=== PATIENT | male | born 1970 | race Caucasian/White ===

== ENCOUNTER 2016-10-27 01:11 | Emergency (ER) | payer MEDICARE, OTHER ==
[~2016-10-27] VITALS: Ht 172.7 cm; Wt 110.0 kg
[~2016-10-27 01:11] MED LIST: ACET325 PO; ATOR10TA PO; CITA-48 PO; CLON1 PO; DIVA500 PO; DYAZ37.52 PO; FERR150C2 PO; FIBE625T3 PO; LEVO112T2 PO; LIPO150C3 PO; METO25 PO; NORV5TAB PO; OMEP40CA2 PO; PREPCRE PR; QUET200 PO; SERO300T2 PO
[2016-10-27 01:15] VITALS: BP 143/82; PULSE 94; RESP 16; TEMP 98.7; O2SAT 99
--- NOTE | 2016-10-27 01:42 | PD ---
HPI Chief Complaint: Psychiatric Symptoms Time Seen by Provider: 01:30 Travel History International Travel<30 days: No Contact w/Intl Traveler<30days: No Traveled to known affect area: No History of Present Illness HPI This is a 46-year-old male with history of developmental delay who presents voluntarily for psychiatric evaluation. According to the army officer who brought the patient here, he was being seen at [facility] in [place] for evaluation of chest pain. As he was being discharged she said that he was feeling suicidal and so they sent him here for psychiatric evaluation. The patient is a poor historian secondary to his history of developmental delay. He is a resident of a residential. He says that he has been feeling suicidal today but he doesn't know why. He denies any attempts at harming himself. He denies any drug or alcohol use. He does endorse pain in the center of his chest which she reportedly has "all the time" for years. The pain is worse with palpation. Nothing else seems to make the pain worse. He denies any associated symptoms such as shortness of breath, cough or congestion, abdominal pain, nausea or vomiting, diaphoresis, exertional chest pain. No calf or leg swelling, recent travel, recent surgery. No evidence of coronary artery disease per chart review. He has been seen here several times in the past for psychiatric evaluation as well as for evaluation of similar sounding chest pain issues. [facility] Past Medical History Neurologic: Yes (MENTAL RETARDATION) Psychiatric: Yes Social History Alcohol Use: No Tobacco Use: No Substance Use: No Allergies-Medications (Allergen,Severity, Reaction): Coded Allergies: No Known Allergies (Unverified , 10/27/16) Reported Meds & Prescriptions Reported Meds & Active Scripts Active Active Prescriptions or Reported Medications Unobtainable Review of Systems ROS Limitations: Poor Historian Except as stated in HPI: all other systems reviewed are Neg Physical Exam Exam Limitations: Poor Historian Narrative GENERAL: Well-developed well-nourished male in no acute distress SKIN: Warm and dry. Scar noted to the forehead. HEAD: Atraumatic. Normocephalic. EYES: Pupils equal and round. No scleral icterus. No injection or drainage. ENT: No nasal bleeding or discharge. Mucous membranes pink and moist. NECK: Trachea midline. No JVD. CARDIOVASCULAR: Regular rate and rhythm. No murmur appreciated. RESPIRATORY: No accessory muscle use. Clear to auscultation. Breath sounds equal bilaterally. GASTROINTESTINAL: Abdomen soft, non-tender, nondistended. Hepatic and splenic margins not palpable. MUSCULOSKELETAL: No obvious deformities. Some tenderness to palpation to lower chest wall. No lower extremity edema, negative Homans. NEUROLOGICAL: Awake and alert. No obvious cranial nerve deficits. Motor grossly within normal limits. Normal speech. Data Data Last Documented VS Vital Signs Date Time Temp Pulse Resp B/P Pulse Ox O2 Delivery O2 Flow Rate FiO2 10/27/16 01:15 94 16 10/27/16 01:15 98.7 143/82 99 Orders Complete Blood Count With Diff (10/27/16 01:23) Drug Screen, Random Urine (10/27/16 01:23) Salicylates (Aspirin) (10/27/16 01:23) Psych Screen (10/27/16 01:23) Electrocardiogram (10/27/16 01:35) Ckmb (Isoenzyme) Profile (10/27/16 01:35) Magnesium (Mg) (10/27/16 01:35) Troponin I (10/27/16 01:35) Lipase (10/27/16 01:35) Chest, Single Ap (10/27/16 ) Tylenol (Acetaminophen) (10/27/16 01:40) Alcohol (Ethanol) (10/27/16 01:40) Comprehensive Metabolic Panel (10/27/16 01:40) Labs Laboratory Tests Test 10/27/16 01:40 White Blood Count 7.7 TH/MM3 Red Blood Count 4.66 MIL/MM3 Hemoglobin 13.5 GM/DL Hematocrit 39.0 % Mean Corpuscular Volume 83.8 FL Mean Corpuscular Hemoglobin 28.9 PG Mean Corpuscular Hemoglobin 34.5 % Concent Red Cell Distribution Width 15.5 % Platelet Count 222 TH/MM3 Mean Platelet Volume 8.9 FL Neutrophils (%) (Auto) 66.5 % Lymphocytes (%) (Auto) 23.9 % Monocytes (%) (Auto) 8.6 % Eosinophils (%) (Auto) 0.5 % Basophils (%) (Auto) 0.5 % Neutrophils # (Auto) 5.2 TH/MM3 Lymphocytes # (Auto) 1.9 TH/MM3 Monocytes # (Auto) 0.7 TH/MM3 Eosinophils # (Auto) 0.0 TH/MM3 Basophils # (Auto) 0.0 TH/MM3 CBC Comment DIFF FINAL Differential Comment Sodium Level 142 MEQ/L Potassium Level 3.8 MEQ/L Chloride Level 107 MEQ/L Carbon Dioxide Level 27.5 MEQ/L Anion Gap 8 MEQ/L Blood Urea Nitrogen 11 MG/DL Creatinine 0.81 MG/DL Estimat Glomerular Filtration 104 ML/MIN Rate Random Glucose 108 MG/DL Calcium Level 8.9 MG/DL Magnesium Level 1.9 MG/DL Total Bilirubin 0.4 MG/DL Aspartate Amino Transf 15 U/L (AST/SGOT) Alanine Aminotransferase 18 U/L (ALT/SGPT) Alkaline Phosphatase 63 U/L Total Creatine Kinase 87 U/L Troponin I LESS THAN 0.02 NG/ML Total Protein 7.4 GM/DL Albumin 3.9 GM/DL Lipase 184 U/L Salicylates Level LESS THAN 1.7 MG/DL Acetaminophen Level LESS THAN 2.0 MCG/ML Ethyl Alcohol Level LESS THAN 3 MG/DL MDM Medical Decision Making Medical Screen Exam Complete: Yes Emergency Medical Condition: Yes Medical Record Reviewed: Yes Interpretation(s) EKG normal sinus rhythm Chest x-ray normal CBC unremarkable CMP unremarkable Troponin/CK negative Tylenol/salicylate level negative Differential Diagnosis Developmental delay, depression, suicidal ideation, acute psychosis, major depressive disorder Narrative Course This is a 46-year-old male who was sent here from an outside emergency room after evaluation for chest pain. He was sent here voluntarily for evaluation of suicidal ideation which he reports started today. His chest pain is very atypical and seems to be reproducible with palpation. It appears that the patient has been evaluated for similar episodes of chest pain in the past with essentially unremarkable workups. I don't suspect pulmonary embolism or cardiac etiology of this patient's pain. Reassuringly he has normal EKG and negative cardiac enzymes as well as a normal chest x-ray. Mental health screening discussed with the patient. Psychiatric screen ordered. The patient is medically cleared for psychiatric disposition. Procedures EKG Prior to Arrival: Yes Diagnosis Primary Impression: Suicidal ideation Scripts Unable to Obtain Active Prescriptions or Reported Meds Bradford Bennett Oct 27, 2016 01:42
[2016-10-27 02:00] LABS: AUTOMATED NEUTROPHIL # 5.2 TH/MM3 (1.8-7.7); BASOPHIL % 0.5 % (0.0-2.0); EOSINOPHIL % 0.5 % (0.0-4.0); HEMO FLAGS DIFF FINAL; LYMPH % 23.9 % (9.0-44.0); LYMPHOCYTE # 1.9 TH/MM3 (1.0-4.8); MEAN CELL VOLUME 83.8 FL (80.0-100.0); MEAN CORPUSCULAR HEMOGLOBIN 28.9 PG (27.0-34.0); MEAN CORPUSCULAR HGB CONC 34.5 % (32.0-36.0); MONO % 8.6 % (0.0-8.0); NEUT % 66.5 % (16.0-70.0); PLATELET COUNT 222 TH/MM3 (150-450); RED BLOOD COUNT 4.66 MIL/MM3 (4.50-5.90); RED CELL DISTRIBUTION WIDTH 15.5 % (11.6-17.2); WHITE BLOOD COUNT 7.7 TH/MM3 (4.0-11.0)
--- NOTE | 2016-10-27 02:12 | RADRPT ---
EXAM DATE/TIME: 10/27/2016 01:56 [facility] COMPARISON: CHEST SINGLE AP, December 19, 2015, 17:52. INDICATIONS : Chest pain, shortness of breath for 1 month MEDICAL HISTORY : None. SURGICAL HISTORY : None. ENCOUNTER: Initial ACUITY: 1 month PAIN SCORE: 6/10 LOCATION: Center of chest FINDINGS: A single view of the chest demonstrates the lungs to be symmetrically aerated without evidence of mas s, infiltrate or effusion. The cardiomediastinal contours are unremarkable. Osseous structures are intact. CONCLUSION: Normal examination. Johan Harden Jr., MD on October 27, 2016 at 2:10 Board Certified Radiologist. This report was verified electronically.
[2016-10-27 02:15] LABS: ANION GAP 8 MEQ/L (5-15); BICARBONATE 27.5 MEQ/L (21.0-32.0); BLOOD UREA NITROGEN 11 MG/DL (7-18); CHLORIDE 107 MEQ/L (98-107); MAGNESIUM 1.9 MG/DL (1.5-2.5); POTASSIUM 3.8 MEQ/L (3.5-5.1); SODIUM (NA) 142 MEQ/L (136-145)
[2016-10-27 02:18] LABS: ACETAMINOPHEN LESS THAN 2.0 MCG/ML (10.0-30.0); ALKALINE PHOSPHATASE 63 U/L (45-117); ALT (GPT) 18 U/L (12-78); AST (GOT) 15 U/L (15-37); GLOMERULAR FILTRATION RATE 104 ML/MIN (>89); TOTAL BILIRUBIN ADULT 0.4 MG/DL (0.2-1.0)
[2016-10-27 02:20] LABS: CREATINE KINASE 87 U/L (39-308)
[2016-10-27 02:32] LABS: AMPHETAMINE, URINE NEG (NEG); BARBITURATES, URINE NEG (NEG); COCAINE, URINE NEG (NEG)
[2016-10-27] MEDS ORDERED: ACETAMINOPHEN 325 MG TAB PO ONE (02:45)
[2016-10-27 07:55] VITALS: BP 137/79; PULSE 75; RESP 16; TEMP 98.7; O2SAT 99
[2016-10-27 11:03] VITALS: BP 150/81; PULSE 107; RESP 18; O2SAT 97
--- NOTE | 2016-10-27 12:49 | EKG ---
Date Performed: 10/27/2016 Time Performed: 01:33:42 PTAGE: 46 years EKG: Sinus rhythm NORMAL ECG INTERPRETATION BASED ON A DEFAULT AGE OF 40 YEARS PREVIOUS TRACING : 12/19/2015 18.38 Compared to prior tracing no significant change DOCTOR: Yayo Hastings Interpretating Date/Time 10/27/2016 12:48:31
[2016-10-27] MEDS ORDERED: LURA20TA PO (13:12)
[2016-10-27] MEDS ORDERED: TRIA37.5 PO (13:12)
[2016-10-27] MEDS ORDERED: LURA40 PO (13:12)
[2016-10-27] MEDS ORDERED: OMEP40CA2 PO (13:12)
[2016-10-27] MEDS ORDERED: AMLO5TAB2 PO (13:12)
[2016-10-27] MEDS ORDERED: METO25TA3 PO (13:12)
[2016-10-27] MEDS ORDERED: ZYPR20TA PO (13:12)
[2016-10-27] MEDS ORDERED: SYNT112T PO (13:12)
[2016-10-27] MEDS ORDERED: LORazepam 2 MG/ML VIAL IV PUSH ONE (13:15)
[2016-10-27] MEDS ORDERED: OLANZapine 10 MG TAB PO ONE (13:30)
[2016-10-27] MEDS ORDERED: LURASIDONE 40 MG TAB PO ONE (13:30)
[2016-10-27] MEDS ORDERED: FERR150C PO (14:19)
[2016-10-27] MEDS ORDERED: VENL150C39 PO (14:19)
[2016-10-27] MEDS ORDERED: DEPA500T3 PO ×2 (14:19)
[2016-10-27] MEDS ORDERED: CITA20TA4 PO (14:19)
[2016-10-27] MEDS ORDERED: CLON1TAB PO (14:19)
[2016-10-27] MEDS ORDERED: ATOR10TA15 PO (14:19)
[2016-10-27] MEDS ORDERED: AMLO2.5T PO (14:19)
[2016-10-27] MEDS ORDERED: OLAN2.5T PO (14:22)
--- NOTE | 2016-10-27 15:23 | PD.CONS ---
Provisional Diagnosis Admission Date Forsan I. Unspecified intellectual disability, adjustment disorder with disturbance of conduct, history of impulse control disorder, depression Forsan II. Deferred Forsan III. HTN, hypothyroidism Forsan IV. Conflicts in home facility Forsan V. 57 History of Present Illness Service Psychiatry Consult Requested By Reason for Consult Refuse to go back to the residential facility Primary Care Physician Unknown HPI The patient is a 46-year-old man, single, unemployed, domiciled in residential facility, with history psychiatric history of intellectual disability, impulse control disorder, aggressive behavior, manipulative behavior in the past, depression and anxiety, he is on multiple psychotropics Depakote 1500 mg daily, citalopram 20 mg, Effexor 150 mg, up to the 40 mg twice a day, clonazepam 1 mg twice a day, olanzapine 20 mg at bedtime, medical history hypertension, hypothyroidism, who presents voluntarily for psychiatric evaluation. According to the policewoman who brought the patient here, he was being seen at [facility] in [place] for evaluation of chest pain. As he was being discharged she said that he was feeling suicidal and so they sent him here for psychiatric evaluation. The patient is a poor historian secondary to his history of developmental delay. He is a resident of a nursing home. He does endorse pain in the center of his chest which she reportedly has "all the time" for years. Patient has been seeing and they are in the past with similar presentation. Workup for chest pain is negative. At the moment of the discharge back to residential facility patient refused to go with escort stating that he wants to stay in the hospital or going to [facility] or residential. On psychiatric evaluation patient is calm, superficially cooperative, he is states that he is feeling better now. Patient states that he doesn't know the reason he is in the hospital. He had chest pain, but now is over. He denies depressive symptoms, he denies anxiety, he denies suicidal and homicidal ideation, he denies visual and auditory hallucinations. When he was asked why he doesn't want to go back to his residential facility, he just answered "because I want to". Patient was unable to verbalize a rational choice/reason to refuse to go to residential facility, in the same way patient is unable to verbalize what circumstances brought him to the hospital, he cannot list the medication he is taking, he cannot say a reason why he wants to go to [facility] or a stay here at [place]. Patient is disoriented in time and place, with impaired abstraction, visible concrete thought process. He denies the use of drugs and alcohol. Review of Systems Constitutional: DENIES: Diaphoretic episodes, Fatigue, Fever, Weight gain, Weight loss, Chills, Dizziness, Change in appetite, Night Sweats Endocrine: DENIES: Heat/cold intolerance, Polydipsia, Polyuria, Polyphagia Eyes: DENIES: Blurred vision, Diplopia, Eye inflammation, Eye pain, Vision loss , Photosensitivity, Double Vision Ears, nose, mouth, throat: DENIES: Tinnitus, Hearing loss, Vertigo, Nasal discharge, Oral lesions, Throat pain, Hoarseness, Ear Pain, Running Nose, Epistaxis, Sinus Pain, Toothache, Odynophagia Respiratory: DENIES: Apneas, Cough, Snoring, Wheezing, Hemoptysis, Sputum production, Shortness of breath Cardiovascular: DENIES: Chest pain, Palpitations, Syncope, Dyspnea on Exertion , PND, Lower Extremity Edema, Orthopnea, Claudication Gastrointestinal: DENIES: Abdominal pain, Black stools, Bloody stools, Constipation, Diarrhea, Nausea, Vomiting, Difficulty Swallowing, Anorexia Genitourinary: DENIES: Sexual dysfunction, Urinary frequency, Urinary incontinence, Urgency, Hematuria, Dysuria, Nocturia, Penile Discharge, Testicular Pain, Testicular Swelling Musculoskeletal: DENIES: Joint pain, Muscle aches, Stiffness, Joint Swelling, Back pain, Neck pain Integumentary: DENIES: Abnormal pigmentation, Nail changes, Pruritus, Rash Immunologic/allergic: DENIES: Eczema, Urticaria Neurologic: DENIES: Abnormal gait, Headache, Localized weakness, Paresthesias, Seizures, Speech Problems, Tremor, Poor Balance Psychiatric: DENIES: Anxiety, Confusion, Mood changes, Depression, Hallucinations, Agitation, Suicidal Ideation, Homicidal Ideation, Delusions Past Family Social History Coded Allergies: No Known Allergies (Unverified , 10/27/16) Reported Medications Olanzapine 2.5 Mg Tab2.5 Mg PO HS #30 TAB Ref 0 10/27/16 Divalproex ER (Depakote ER)500 Mg Taber1,000 Mg PO HS #60 TAB Ref 0 10/27/16 Divalproex ER (Depakote ER)500 Mg [id number] Mg PO DAILY #30 TAB Ref 0 10/27/16 Polysaccharide Iron Complex (Ferrex 150)150 Mg Sxg590 Mg PO HS 10/27/16 Amlodipine 2.5 Mg Tab2.5 Mg PO HS #30 TAB Ref 0 10/27/16 Venlafaxine ER 24 HR 150 Mg Wgb296 Mg PO DAILY #30 CAP Ref 0 10/27/16 Citalopram 20 Mg Tab1.5 Tab PO DAILY #30 TAB Ref 0 10/27/16 Atorvastatin 10 Mg Tab10 Mg PO HS #30 TAB Ref 0 10/27/16 Clonazepam 1 Mg Tab1 Mg PO TID #90 TAB Ref 0 10/27/16 Metoprolol Tartrate 25 Mg Tab25 Mg PO DAILY #30 TAB Ref 0 10/27/16 Lurasidone (Latuda)40 Mg Tab80 Mg PO DAILY #30 TAB Ref 0 10/27/16 Levothyroxine (Synthroid)112 Mcg Ycs175 Mcg PO DAILY #30 TAB Ref 0 10/27/16 Triamterene-Hydrochlorothiazide 37.5-25 Mg Tab1 Tab PO DAILY #30 TAB Ref 0 10/27/16 Amlodipine 5 Mg Tab5 Mg PO DAILY #30 TAB Ref 0 10/27/16 Omeprazole 40 Mg Cap40 Mg PO DAILY #30 CAP Ref 0 10/27/16 Olanzapine (Zyprexa)20 Mg Tab20 Mg PO HS #30 TAB Ref 0 10/27/16 Discontinued Reported Medications Acetaminophen (Tylenol)325 Mg [id number] Mg PO Q4H PRN (PAIN AND/OR FEVER) 12/19/15 Clonazepam (Klonopin)1 Mg Tab1 Mg PO TID 12/19/15 Calcium Polycarbophil (Fiber Laxative)625 Mg Jnw170 Mg PO BID 12/19/15 Uaxkhhhqq-Utautdmarerko-Ercvpo (Preparation H)H Cre1 Applic RI BID 12/19/15 Atorvastatin 10 mg 10 Mg Tab10 Mg PO HS 30 Days 12/19/15 Levothyroxine Sodium (Levothyroxine 112 mcg)112 Mcg Gws017 Mcg PO DAILY 12/19/15 Fenofibrate (Lipofen)150 Mg Hgy328 Mg PO DAILY 12/19/15 Omeprazole 40 mg 40 Mg Cap40 Mg PO DAILY 12/19/15 Quetiapine XR 300 mg (Seroquel XR 300 mg)300 Mg Nzj187 Mg PO HS 12/19/15 Polysaccharide Iron Complex (Ferrex 150)150 Mg Kag934 Mg PO DAILY 12/19/15 Divalproex Sodium (Divalproex Sodium Dr)500 Mg Jff100 Mg PO TID 12/19/15 Quetiapine Fumarate 200 Mg Lds033 Mg PO TID 12/19/15 Triamterene & Hydrochlorothiaz (Dyazide)37.5 Mg/25 Mg Cap1 Cap PO DAILY 10/12/13 Norvasc 5 Mg Tab5 Mg PO DAILY 08/23/13 Metoprolol Tartrate 25 mg 25 Mg Tab25 Mg PO DAILY 08/23/13 Citalopram Hydrobromide 40 Mg Tab40 Mg PO DAILY 08/23/13 Social History Patient is residential living facility, unemployed, single, Physical Exam Vital Signs Vital Signs Date Time Temp Pulse Resp B/P Pulse Ox O2 Delivery O2 Flow Rate FiO2 10/27/16 11:03 107 18 150/81 97 Room Air 10/27/16 07:55 98.7 Mental Status Examination Appearance Overweight man, fair hygiene, street clothing, superficially cooperative, irritable, Speech: Hesitant Memory: Impaired (describe) Thought Process: Other (concrete, goal-directed) Thought Content: Bizarre thinking, Obsessions Attention and Concentration: Good Suicidal Ideation: No Previous Suicide Attempts: No Homicidal Ideation: No Previous Homicide Attempts: No Judgment: Poor Affect: Irritable Mood: Angry Motor Activity: Normal gait Assessment & Plan Problem List: (1) Intellectual disability Assessment & Plan: The patient is a 46-year-old man, single, unemployed, domiciled in residential facility, with history psychiatric history of intellectual disability, impulse control disorder, aggressive behavior, manipulative behavior in the past, depression and anxiety, he is on multiple psychotropics Depakote 1500 mg daily, citalopram 20 mg, Effexor 150 mg, up to the 40 mg twice a day, clonazepam 1 mg twice a day, olanzapine 20 mg at bedtime , medical history hypertension, hypothyroidism, who presents voluntarily for psychiatric evaluation. Also gathered evaluation the patient denies depressive symptoms, he denies anxiety, he denies perceptual disturbances, he denies suicidal and homicidal ideation. Patient is reticent, guarded, with very concrete and goal-directed thought processes. Patient is now medically and psychiatrically clear, he does not meet criteria for psychiatric admission. He can continue his psychiatric care with outpatient be sitting psychiatrist and continue his current psychotropic regimen. Patient has expressed the choice of not going back to his residential facility, but he is unable to clarify circumstances that led to this decision, in the same way that he is unable to verbalize a clear understanding and appreciation of the medical conditions that brought into the hospital. Patient is partially disoriented, with visible intellectual disability and cognitive impairment. For this reason the patient does not have decision-making capacity to refuse to go back to his residential facility. Extensive psychoeducation, motivation and support provided. Thorazine 100 mg IM can be ordered if patient become aggressive and agitated. ICD Code: F79 Assessment & Plan Estimated LOS: days Christian Garcia MD Oct 27, 2016 15:23
== END 2016-10-27 16:21 | disposition home or self-care (01) ==
LOC: NEPD 01:11
DX: F79 Unspecified intellectual disabilities (principal); I10 Essential (primary) hypertension; E03.9 Hypothyroidism, unspecified; R07.9 Chest pain, unspecified; Z79.899 Other long term (current) drug therapy
CPT/HCPCS: 71010; 80053; 80307; 82550; 83690; 83735; 84484; 85025; 93005; 96372; 96374; 99284; J2060; J3230

== ENCOUNTER 2016-12-15 21:34 | Emergency (ER) | payer MEDICARE, OTHER ==
[~2016-12-15] VITALS: Ht 180.3 cm; Wt 98.0 kg
[~2016-12-15 21:34] MED LIST changes: -ACET325 PO; +AMLO2.5T PO; +AMLO5TAB2 PO; -ATOR10TA PO; +ATOR10TA15 PO; -CITA-48 PO; +CITA20TA4 PO; -CLON1 PO; +CLON1TAB PO; +DEPA500T3 PO; -DIVA500 PO; -DYAZ37.52 PO; +FERR150C PO; -FERR150C2 PO; -FIBE625T3 PO; -LEVO112T2 PO; -LIPO150C3 PO; +LURA40 PO; -METO25 PO; +METO25TA3 PO; -NORV5TAB PO; +OLAN2.5T PO; -PREPCRE PR; -QUET200 PO; -SERO300T2 PO; +SYNT112T PO; +TRIA37.5 PO; +VENL150C39 PO; +ZYPR20TA PO
[2016-12-15 21:47] VITALS: BP 137/93; PULSE 102; RESP 14; TEMP 99; O2SAT 97
[2016-12-15] MEDS ORDERED: FIBE625T3 PO (21:53)
[2016-12-15] MEDS ORDERED: PREPPAD RECTAL (21:53)
[2016-12-15] MEDS ORDERED: ZYPR10TA PO (21:53)
--- NOTE | 2016-12-15 22:21 | PD ---
HPI Chief Complaint: Psychiatric Symptoms Time Seen by Provider: 22:16 Travel History International Travel<30 days: No Contact w/Intl Traveler<30days: No Traveled to known affect area: No History of Present Illness HPI 46-year-old white male presents to emergency department after being medically cleared at [facility]. He was seen for a medical issue then placed under a Alex act due to behavioral problems in the ER. He was sent to [facility] but was diverted to [place]. The patient here states that he had gotten upset with the staff in the emergency department. He had become verbally abusive and started throwing things. Patient has a history of mental retardation. He denies making any suicidal homicidal statements. He denies any toxic ingestions. He states that he was seen for abdominal discomfort with nausea vomiting. He had laboratory testing including a CAT scan which were unremarkable for any acute intra-abdominal process. He was therefore discharged. The patient here states that he has not vomited sometime. He states that his pain is improved. Patient states that he lives in a custodial and has been compliant with his medications. He states that he was Alex acted one other time for similar episode. [facility] Past Medical History Narrative Medical Mental retardation Neurologic: Yes (MENTAL RETARDATION) Psychiatric: Yes Immunizations Current: Yes Tetanus Vaccination: Unknown Past Surgical History Narrative Surgical Right hand surgery secondary to deep laceration from putting his hand in a window. Social History Alcohol Use: No Tobacco Use: No Substance Use: No (chewing tobacco/quit) Allergies-Medications (Allergen,Severity, Reaction): Coded Allergies: No Known Allergies (Unverified , 10/27/16) Reported Meds & Prescriptions Reported Meds & Active Scripts Active Reported Preparation H (Dhruv Patterson) 1 Each Med..pad Unknown Dose RECTAL BID Fiber Laxative (Calcium Polycarbophil) 625 Mg Tab 1,250 Mg PO BID PRN Zyprexa (Olanzapine) 10 Mg Tab 10 Mg PO HS Depakote ER (Divalproex Sodium) 500 Mg Amado 1,000 Mg PO HS Depakote ER (Divalproex Sodium) 500 Mg Amado 500 Mg PO DAILY Ferrex 150 (Polysaccharide Iron Complex) 150 Mg Cap 150 Mg PO HS Amlodipine (Amlodipine Besylate) 2.5 Mg Tab 2.5 Mg PO HS Venlafaxine ER 24 HR (Venlafaxine HCl) 150 Mg Cap 150 Mg PO DAILY Citalopram (Citalopram Hydrobromide) 20 Mg Tab 30 Mg PO DAILY Atorvastatin (Atorvastatin Calcium) 10 Mg Tab 10 Mg PO HS Clonazepam 1 Mg Tab 1 Mg PO TID Metoprolol Tartrate 25 Mg Tab 25 Mg PO DAILY Latuda (Lurasidone) 40 Mg Tab 80 Mg PO DAILY Synthroid (Levothyroxine Sodium) 112 Mcg Tab 112 Mcg PO DAILY Triamterene-Hydrochlorothiazide 37.5-25 Mg Tab 1 Tab PO DAILY Amlodipine (Amlodipine Besylate) 5 Mg Tab 5 Mg PO DAILY Omeprazole 40 Mg Cap 40 Mg PO DAILY Review of Systems Except as stated in HPI: all other systems reviewed are Neg Cardiovascular: No: Chest Pain or Discomfort, Palpitations Respiratory: No: Cough, Shortness of Breath Gastrointestinal: Positive: Nausea, Vomiting, Abdominal Pain Genitourinary: No: Frequency, Dysuria Musculoskeletal: No: Myalgias, Arthralgias Skin: No Rash, No Itching Neurologic: No: Headache, Change in Mentation Psychiatric: Positive: Mood Disorder, No: Anxiety, Depression, Suicidal Ideations, Disorder of Thought, Substance Abuse, Homicidal Ideation Physical Exam Narrative GENERAL: Well-nourished, well-developed patient. SKIN: Warm and dry. HEAD: Normocephalic and atraumatic. EYES: No scleral icterus. No injection or drainage. ENT: No nasal drainage noted. Mucous membranes pink. Airway patent. NECK: Supple, trachea midline. Moves head freely without obvious discomfort. CARDIOVASCULAR: Regular rate and rhythm without murmurs, gallops, or rubs. RESPIRATORY: Breath sounds equal bilaterally. No accessory muscle use. GASTROINTESTINAL: Abdomen soft, non-tender, nondistended. EXTREMITIES: No cyanosis or edema. BACK: Nontender without obvious deformity. No CVA tenderness. NEURO: Patient is alert and oriented. no sensorimotor deficits. Nonfocal. Normal speech. PSYCH: No delusions. No auditory or visual hallucinations. Data Data Last Documented VS Vital Signs Date Time Temp Pulse Resp B/P Pulse Ox O2 Delivery O2 Flow Rate FiO2 12/15/16 21:47 99.0 102 14 137/93 97 Orders Psych Screen (12/15/16 22:00) MDM Medical Decision Making Medical Screen Exam Complete: Yes Emergency Medical Condition: Yes Medical Record Reviewed: Yes Differential Diagnosis MDM: High Differential diagnoses: Schizophrenia, schizoaffective disorder, bipolar, anxiety, depression, adjustment reaction, mood disorder NOS, ODD, depressive disorder NOS, dementia, dementia with agitation, psychosis NOS, substance induced mood disorder, intermittent explosive disorder, Asperger syndrome, infection,electrolyte abnormality, malingering. Narrative Course Mental health screening discussed with the patient. Psychiatric screen ordered. The patient had been medically cleared at [facility]. I've reviewed the patient's medical record. This is cognitive disorder, mood disorder Diagnosis Primary Impression: Cognitive disorder Additional Impression: Mood disorder Condition: Stable [place] December 15, 2016 22:21
[2016-12-16 00:13] VITALS: BP 142/78; PULSE 84; RESP 16; O2SAT 99
[2016-12-16] MEDS ORDERED: LIDOCAINE VISCOUS 2% SOLN 15 ML UDC PO ONE (01:15)
[2016-12-16] MEDS ORDERED: ALUMINUM/MAGNESIUM/SIMETH 30 ML CUP PO ONE (01:15)
[2016-12-16] MEDS ORDERED: diphenhydrAMINE HCL ELIXIR 12.5 MG/5 ML CUP PO ONE (01:15)
[2016-12-16 03:30] VITALS: BP 130/72; PULSE 78; RESP 12; O2SAT 98
[2016-12-16 06:10] VITALS: BP 125/73; PULSE 80; RESP 14; O2SAT 97
[2016-12-16 07:19] VITALS: BP 122/71; PULSE 72; RESP 16; O2SAT 97
--- NOTE | 2016-12-16 14:30 | EKG ---
Date Performed: 12/16/2016 Time Performed: 06:20:13 PTAGE: 46 years EKG: Sinus rhythm NORMAL ECG Compared to prior tracing no significant change PREVIOUS TRACING : 10/27/2016 01.33 DOCTOR: Lino Costa Interpretating Date/Time 12/16/2016 14:24:18
== END 2016-12-16 09:28 | disposition short-term general hospital (02) ==
LOC: NEPD 21:34
DX: F09 Unspecified mental disorder due to known physiological condition (principal); F39 Unspecified mood [affective] disorder
CPT/HCPCS: 93005; 99285

== ENCOUNTER 2017-01-09 16:19 | Emergency (ER) | payer MEDICARE, OTHER ==
[~2017-01-09] VITALS: Ht 182.9 cm; Wt 91.0 kg
[~2017-01-09 16:19] MED LIST changes: +FIBE625T3 PO; -OLAN2.5T PO; +PREPPAD RECTAL; +ZYPR10TA PO; -ZYPR20TA PO
[2017-01-09 16:44] VITALS: BP 184/105; PULSE 106; RESP 18; TEMP 98.8; O2SAT 98
--- NOTE | 2017-01-09 17:10 | PD ---
HPI Chief Complaint: Psychiatric Symptoms Time Seen by Provider: 16:38 Travel History International Travel<30 days: No Contact w/Intl Traveler<30days: No Traveled to known affect area: No History of Present Illness HPI The patient's 46. He suffers with a cognitive disorder. He was combative at his assisted. He reports to me intent to harm others. He denies suicidal ideation. He has no medical complaint. Location neuropsychiatric. Severity moderate. Timing constant. PFSH Past Medical History Diminished Hearing: No Neurologic: Yes (MENTAL RETARDATION) Psychiatric: Yes Immunizations Current: No Tetanus Vaccination: Unknown Influenza Vaccination: No Social History Alcohol Use: No Tobacco Use: No Substance Use: No (chewing tobacco/quit) Allergies-Medications (Allergen,Severity, Reaction): Coded Allergies: No Known Allergies (Unverified , 10/27/16) Reported Meds & Prescriptions Reported Meds & Active Scripts Active Reported Preparation H (Dhruv Patterson) 1 Each Med..pad Unknown Dose RECTAL BID Fiber Laxative (Calcium Polycarbophil) 625 Mg Tab 1,250 Mg PO BID PRN Zyprexa (Olanzapine) 10 Mg Tab 10 Mg PO HS Depakote ER (Divalproex Sodium) 500 Mg Amado 1,000 Mg PO HS Depakote ER (Divalproex Sodium) 500 Mg Amado 500 Mg PO DAILY Ferrex 150 (Polysaccharide Iron Complex) 150 Mg Cap 150 Mg PO HS Amlodipine (Amlodipine Besylate) 2.5 Mg Tab 2.5 Mg PO HS Venlafaxine ER 24 HR (Venlafaxine HCl) 150 Mg Cap 150 Mg PO DAILY Citalopram (Citalopram Hydrobromide) 20 Mg Tab 30 Mg PO DAILY Atorvastatin (Atorvastatin Calcium) 10 Mg Tab 10 Mg PO HS Clonazepam 1 Mg Tab 1 Mg PO TID Metoprolol Tartrate 25 Mg Tab 25 Mg PO DAILY Latuda (Lurasidone) 40 Mg Tab 80 Mg PO DAILY Synthroid (Levothyroxine Sodium) 112 Mcg Tab 112 Mcg PO DAILY Triamterene-Hydrochlorothiazide 37.5-25 Mg Tab 1 Tab PO DAILY Amlodipine (Amlodipine Besylate) 5 Mg Tab 5 Mg PO DAILY Omeprazole 40 Mg Cap 40 Mg PO DAILY Review of Systems Except as stated in HPI: all other systems reviewed are Neg Physical Exam Narrative GENERAL: Alert well-developed 46-year-old male no acute distress cooperative SKIN: Focused skin assessment warm/dry. HEAD: Atraumatic. Normocephalic. EYES: Pupils equal and round. No scleral icterus. No injection or drainage. ENT: No nasal bleeding or discharge. Mucous membranes pink and moist. NECK: Trachea midline. No JVD. CARDIOVASCULAR: Regular rate and rhythm. No murmur appreciated. RESPIRATORY: No accessory muscle use. Clear to auscultation. Breath sounds equal bilaterally. GASTROINTESTINAL: Abdomen soft, non-tender, nondistended. Hepatic and splenic margins not palpable. MUSCULOSKELETAL: No obvious deformities. No clubbing. No cyanosis. No edema. NEUROLOGICAL: Awake and alert. No obvious cranial nerve deficits. Motor grossly within normal limits. Normal speech. PSYCHIATRIC: Agitation reported from living facility. Data Data Last Documented VS Vital Signs Date Time Temp Pulse Resp B/P Pulse Ox O2 Delivery O2 Flow Rate FiO2 01/09/17 16:44 98.8 106 18 184/105 98 Vital signs reviewed Orders Psych Screen (01/09/17 17:03) Olanzapine Odt (Zyprexa Zydis Odt) (01/09/17 17:30) Clonazepam (Klonopin) (01/09/17 17:30) MDM Medical Decision Making Medical Screen Exam Complete: Yes Emergency Medical Condition: Yes Medical Record Reviewed: Yes Differential Diagnosis Altered mental status/psychosis due to infection/environmental exposure/ metabolic abnormality, polypharmacy, alcohol abuse/intoxication, illicit or prescribed drug abuse, malingering/secondary gain, non-organic psychiatric disease Narrative Course The history of present illness, ROS, physical exam, review of records and medical workup performed for today's visit have reasonably safely excluded organic etiologies for the patient's presenting complaint. We will continue to monitor the patient carefully in the ER until time of evaluation by the psychiatry service. We are available for any additional medical assistance if needed during the patient's ER course. Disposition per discretion of psychiatry is appreciated. Psychiatry note appreciated: the patient's suitable for discharge home. Diagnosis Primary Impression: Cognitive disorder Referrals: Primary Care Physician 2 days Additional Instructions: You have a choice when it comes to health care, and we are glad that you chose [facility]. Hopefully, we have met your expectations on today's visit. You are welcome to return to [facility] at any time, as we are committed to meeting the health care needs of our community. Med/Other Pt SpecificInfo: No Change to Meds Disposition: 01 DISCHARGE HOME Condition: Stable Don Marin MD Jan 09, 2017 17:10
[2017-01-09] MEDS ORDERED: clonazePAM 1 MG TAB PO ONE ×2 (17:15→17:30)
--- NOTE | 2017-01-09 17:16 | PD ---
History of Present Illness Chief Complaint: Psychiatric Symptoms Time Seen by Provider: 17:00 Travel History International Travel<30 Days: No Contact w/Intl Traveler<30days: No Known affected area: No Legal Status Legal Status: Alex Act Alex Act Signed By: History of Present Illness: This is a 46-year-old male who is known to the emergency department staff, this physician, and the psychiatry staff. He has an intellectual disability which does not qualify for Alex act. He becomes upset occasionally and can act out physically. This physician is recommending medication which includes Zyprexa Zydis 10 mg now and Klonopin 2 mg now to address his behavioral issues. He does not learn anything from psychiatric hospitalization and should be return to his current senior living. It appears he wants to be evaluated for complaints of chest pain but that is all. He is not suicidal, homicidal or psychotic. His medications can be managed on an outpatient basis. PFSH Past Medical History Diminished Hearing: No Neurologic: Yes (MENTAL RETARDATION) Psychiatric: Yes Immunizations Current: No Tetanus Vaccination: Unknown Influenza Vaccination: No Psychiatric History Psychiatric History Hx Psychiatric Treatment: [facility] NOVEMBER 2015 WITH DX OF MOOD D/O NOS. Patient does not have significant objective evidence of a mood disorder at this time. History of Inpatient Treatment: Yes Guns or firearms in home: No Social History Hx Alcohol Use: No Hx Tobacco Use: No Hx Substance Use: No (chewing tobacco/quit) Substance Use Type: Nicotine/Cigarettes Hx of Substance Use Treatment: No Allergies-Medications (Allergen,Severity, Reaction): Coded Allergies: No Known Allergies (Unverified , 10/27/16) Reported Meds & Prescriptions Reported Meds & Active Scripts Active Reported Preparation H (Dhruv Patterson) 1 Each Med..pad Unknown Dose RECTAL BID Fiber Laxative (Calcium Polycarbophil) 625 Mg Tab 1,250 Mg PO BID PRN Zyprexa (Olanzapine) 10 Mg Tab 10 Mg PO HS Depakote ER (Divalproex Sodium) 500 Mg Amado 1,000 Mg PO HS Depakote ER (Divalproex Sodium) 500 Mg Amado 500 Mg PO DAILY Ferrex 150 (Polysaccharide Iron Complex) 150 Mg Cap 150 Mg PO HS Amlodipine (Amlodipine Besylate) 2.5 Mg Tab 2.5 Mg PO HS Venlafaxine ER 24 HR (Venlafaxine HCl) 150 Mg Cap 150 Mg PO DAILY Citalopram (Citalopram Hydrobromide) 20 Mg Tab 30 Mg PO DAILY Atorvastatin (Atorvastatin Calcium) 10 Mg Tab 10 Mg PO HS Clonazepam 1 Mg Tab 1 Mg PO TID Metoprolol Tartrate 25 Mg Tab 25 Mg PO DAILY Latuda (Lurasidone) 40 Mg Tab 80 Mg PO DAILY Synthroid (Levothyroxine Sodium) 112 Mcg Tab 112 Mcg PO DAILY Triamterene-Hydrochlorothiazide 37.5-25 Mg Tab 1 Tab PO DAILY Amlodipine (Amlodipine Besylate) 5 Mg Tab 5 Mg PO DAILY Omeprazole 40 Mg Cap 40 Mg PO DAILY Review of Systems Except as stated in HPI: all other systems reviewed are Neg Exam Alert: Yes [place]: Person, Place Mood: Calm Affect: Euthymic Speech: Clear Eye Contact: Indirect Memory Intact: Immediate, Recent, Remote Insight/Judgement Limited but adequate. [facility] Medical Decision Making Medical Record Reviewed: Yes Assessment/Plan Medications being ordered, Alex act being lifted, patient to be discharged to senior living once medically cleared. Orders Complete Blood Count With Diff (01/09/17 17:03) Comprehensive Metabolic Panel (01/09/17 17:03) Psych Screen (01/09/17 17:03) Drug Screen, Random Urine (01/09/17 17:03) Alcohol (Ethanol) (01/09/17 17:03) Tylenol (Acetaminophen) (01/09/17 17:03) Results Vital Signs Date Time Temp Pulse Resp B/P Pulse Ox O2 Delivery O2 Flow Rate FiO2 01/09/17 16:44 98.8 106 18 184/105 98 Diagnosis Primary Impression: Intellectual disability Camron Granados MD Jan 09, 2017 17:16
[2017-01-09] MEDS ORDERED: OLANZapine ODT 10 MG TAB PO ONE (17:30)
[2017-01-09 19:00] VITALS: BP 127/66; PULSE 79; RESP 17; O2SAT 98
[2017-01-09 21:00] VITALS: BP 119/69; PULSE 88; RESP 17; O2SAT 98
[2017-01-09] MEDS ORDERED: HALOPERIDOL LACTATE 5 MG/ML AMP IM ONE (21:45)
[2017-01-09] MEDS ORDERED: LORazepam 2 MG/ML VIAL IM ONE (21:45)
[2017-01-09] MEDS ORDERED: LORazepam 2 MG/ML VIAL ONE (21:46)
[2017-01-09] MEDS ORDERED: HALOPERIDOL LACTATE 5 MG/ML AMP ONE (21:46)
--- NOTE | 2017-01-09 21:48 | PD ---
Physical Exam Date Seen by Provider: Jan 09, 2017 Time Seen by Provider: 21:46 Narrative Patient had been cleared by psych to be transported back to facility, however, when transported came, patient became combative and agitated, and has to be restrained and was given medications for agitation, Haldol and Ativan, at request of transporting staff. Still planning to transfer back to facility once more cooperative. Vital signs are stable in the ER. Data Data Last Documented VS Vital Signs Date Time Temp Pulse Resp B/P Pulse Ox O2 Delivery O2 Flow Rate FiO2 01/09/17 19:00 79 17 127/66 98 Room Air 01/09/17 16:44 98.8 Orders Psych Screen (01/09/17 17:03) Olanzapine Odt (Zyprexa Zydis Odt) (01/09/17 17:30) Clonazepam (Klonopin) (01/09/17 17:30) Diet Regular Basic (01/09/17 Dinner) MDM Medical Record Reviewed: Yes Supervised Visit with JEANA: No Diagnosis Primary Impression: Cognitive disorder Referrals: Primary Care Physician 2 days Patient Instructions: General Instructions, Mood Disorders (ED) Departure Forms: Tests/Procedures Additional Instruction: You have a choice when it comes to health care, and we are glad that you chose [facility]. Hopefully, we have met your expectations on today's visit. You are welcome to return to [facility] at any time, as we are committed to meeting the health care needs of our community. Disposition: 01 DISCHARGE HOME Condition: Stable Altaf Black MD Jan 09, 2017 21:48
[2017-01-09] MEDS ORDERED: LORazepam 2 MG/ML VIAL IV PUSH ONE ×2 (22:15→22:45)
[2017-01-09] MEDS ORDERED: diphenhydrAMINE HCL 50 MG/ML VIAL IV PUSH ONE (22:45)
[2017-01-09 23:00] VITALS: BP 123/71; PULSE 85; RESP 14; O2SAT 98
[2017-01-10 01:00] VITALS: BP 130/68; PULSE 78; RESP 15; O2SAT 99
[2017-01-10 03:00] VITALS: BP 121/73; PULSE 77; RESP 17; O2SAT 100
[2017-01-10 05:00] VITALS: BP 124/70; PULSE 81; RESP 17; O2SAT 100
[2017-01-10] MEDS ORDERED: HALOPERIDOL LACTATE 5 MG/ML AMP IV PUSH ONE (09:15)
[2017-01-10] MEDS ORDERED: LORazepam 2 MG/ML VIAL IV PUSH ONE (09:15)
[2017-01-10] MEDS ORDERED: LORazepam 2 MG/ML VIAL IM ONE ×2 (09:30→10:45)
[2017-01-10] MEDS ORDERED: HALOPERIDOL LACTATE 5 MG/ML AMP IM ONE (09:30)
[2017-01-10] MEDS ORDERED: diphenhydrAMINE HCL 50 MG/ML VIAL IM ONE (10:45)
[2017-01-10] MEDS ORDERED: OLANZapine IM 10 MG VIAL IM ONE (10:45)
--- NOTE | 2017-01-10 10:54 | PD ---
Physical Exam Narrative I was informed by previous team that pt would need medication prior to transport because he acts out. Ativan 1mg and haldol 5mg IM given. Pt was still acting out and was seen by psychiatrist Dr. Granados who ordered more ativan, olanzapine and benadryl. Pt was calm and states he is willing to go back but then once he sat on the wheelchair, started to swing at people again. At this time, Dr. Granados came back to evaluate the patient and pt was brought to [facility]. Data Data Last Documented VS Vital Signs Date Time Temp Pulse Resp B/P Pulse Ox O2 Delivery O2 Flow Rate FiO2 01/10/17 05:00 81 17 124/70 100 Room Air 01/09/17 16:44 98.8 Orders Psych Screen (01/09/17 17:03) Olanzapine Odt (Zyprexa Zydis Odt) (01/09/17 17:30) Clonazepam (Klonopin) (01/09/17 17:30) Diet Regular Basic (01/09/17 Dinner) Haloperidol Inj (Haldol Inj) (01/09/17 21:45) Lorazepam Inj (Ativan Inj) (01/09/17 21:45) Haloperidol Inj (Haldol Inj) (01/09/17 21:46) Lorazepam Inj (Ativan Inj) (01/09/17 21:46) Lorazepam Inj (Ativan Inj) (01/09/17 22:15) Diphenhydramine Inj (Benadryl Inj) (01/09/17 22:45) Lorazepam Inj (Ativan Inj) (01/09/17 22:45) Lorazepam Inj (Ativan Inj) (01/10/17 09:15) Haloperidol Inj (Haldol Inj) (01/10/17 09:15) Haloperidol Inj (Haldol Inj) (01/10/17 09:30) Lorazepam Inj (Ativan Inj) (01/10/17 09:30) Olanzapine Inj (Zyprexa Inj) (01/10/17 10:45) Diphenhydramine Inj (Benadryl Inj) (01/10/17 10:45) Lorazepam Inj (Ativan Inj) (01/10/17 10:45) [facility] Supervised Visit with JEANA: No Diagnosis Primary Impression: Cognitive disorder Referrals: Primary Care Physician 2 days Patient Instructions: General Instructions, Mood Disorders (ED) Departure Forms: Tests/Procedures Additional Instruction: You have a choice when it comes to health care, and we are glad that you chose [facility]. Hopefully, we have met your expectations on today's visit. You are welcome to return to [facility] at any time, as we are committed to meeting the health care needs of our community. Disposition: 01 DISCHARGE HOME Condition: Stable Madeleine Amaral DO Jan 10, 2017 10:54
[2017-01-10 11:03] VITALS: BP 131/91; PULSE 98; RESP 18; TEMP 99.1; O2SAT 94
== END 2017-01-10 16:00 | disposition home or self-care (01) ==
LOC: NEPJ 16:19 → NEPE 01-10 10:15 → NEPJ 01-10 11:17
DX: F09 Unspecified mental disorder due to known physiological condition (principal); F79 Unspecified intellectual disabilities; R07.9 Chest pain, unspecified; Z87.891 Personal history of nicotine dependence
CPT/HCPCS: 96372; 96374; 96375; 99285; J1200; J1630; J2060

== ENCOUNTER 2017-01-25 11:51 | Emergency (ER) | payer MEDICARE, OTHER ==
[~2017-01-25] VITALS: Ht 182.9 cm; Wt 115.0 kg
[2017-01-25 12:09] VITALS: BP 132/84; PULSE 99; RESP 16; TEMP 98; O2SAT 96
[2017-01-25 12:29] VITALS: BP 142/76; PULSE 96; RESP 16; O2SAT 98
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
[2017-01-25 13:39] LABS: AMPHETAMINE, URINE NEG (NEG); BARBITURATES, URINE NEG (NEG); COCAINE, URINE NEG (NEG)
[2017-01-25 13:43] LABS: AUTOMATED NEUTROPHIL # 7.6 TH/MM3 (1.8-7.7); BASOPHIL % 0.3 % (0.0-2.0); EOSINOPHIL % 0.1 % (0.0-4.0); HEMATOCRIT 41.3 % (39.0-51.0); HEMO FLAGS DIFF FINAL; LYMPH % 18.8 % (9.0-44.0); MEAN CELL VOLUME 85.9 FL (80.0-100.0); MEAN CORPUSCULAR HEMOGLOBIN 28.5 PG (27.0-34.0); MEAN CORPUSCULAR HGB CONC 33.2 % (32.0-36.0); NEUT % 69.8 % (16.0-70.0); PLATELET COUNT 234 TH/MM3 (150-450); RED CELL DISTRIBUTION WIDTH 14.6 % (11.6-17.2); WHITE BLOOD COUNT 10.9 TH/MM3 (4.0-11.0)
[2017-01-25 13:56] LABS: ANION GAP 9 MEQ/L (5-15); AST (GOT) 14 U/L (15-37); BICARBONATE 27.4 MEQ/L (21.0-32.0); BLOOD UREA NITROGEN 16 MG/DL (7-18); CHLORIDE 108 MEQ/L (98-107); GLOMERULAR FILTRATION RATE 78 ML/MIN (>89); POTASSIUM 3.4 MEQ/L (3.5-5.1); SODIUM (NA) 144 MEQ/L (136-145)
[2017-01-25 14:00] LABS: ALKALINE PHOSPHATASE 62 U/L (45-117); ALT (GPT) 18 U/L (12-78); TOTAL BILIRUBIN ADULT 0.5 MG/DL (0.2-1.0)
[2017-01-25 15:39] VITALS: BP 129/67; PULSE 89; RESP 18; O2SAT 99
[2017-01-25 16:04] VITALS: BP 131/66; PULSE 77; RESP 18; O2SAT 97
[2017-01-25 18:17] VITALS: BP 126/58; PULSE 86; RESP 18; O2SAT 100
[2017-01-25] MEDS: ACETAMINOPHEN 500 MG CPLT PO PRN (18:40)
[2017-01-25 22:15] VITALS: BP 135/73; PULSE 71; RESP 19; O2SAT 98
[2017-01-26 01:56] VITALS: BP 159/87; PULSE 80; RESP 18; O2SAT 98
[2017-01-26 06:18] VITALS: BP 138/69; PULSE 75; RESP 16; O2SAT 98
[2017-01-26 14:44] VITALS: BP 132/79; PULSE 84; RESP 18; TEMP 98.6; O2SAT 98
[2017-01-26] MEDS: ACETAMINOPHEN 500 MG CPLT PO PRN (21:06)
[2017-01-26 22:15] VITALS: BP 159/84; PULSE 71; RESP 18; O2SAT 97
[2017-01-27 09:18] VITALS: BP 145/70; PULSE 72; RESP 20
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
[2017-01-27] MEDS ORDERED: HALOPERIDOL LACTATE 5 MG/ML AMP IM ONE (19:00)
[2017-01-27] MEDS ORDERED: LORazepam 2 MG/ML VIAL IM ONE (19:00)
== END 2017-01-27 21:27 | disposition home or self-care (01) ==
LOC: NEPD 11:51
DX: F91.1 Conduct disorder, childhood-onset type (principal); F79 Unspecified intellectual disabilities
CPT/HCPCS: 80053; 80307; 85025; 96372; 99284; J1630; J2060

== ENCOUNTER 2017-01-27 22:39 | Emergency (ER) | payer MEDICARE, OTHER ==
[~2017-01-27] VITALS: Ht 172.7 cm; Wt 90.0 kg
[2017-01-27 22:56] VITALS: BP 156/90; PULSE 97; RESP 18; TEMP 98.1; O2SAT 98
[2017-01-27] MEDS ORDERED: SODIUM CHLORIDE 0.9% FLUSH 10 ML FLUSH IVF PRN (23:00)
[2017-01-27 23:03] VITALS: O2SAT 96
[2017-01-27 23:44] LABS: AUTOMATED NEUTROPHIL # 5.2 TH/MM3 (1.8-7.7); BASOPHIL % 0.3 % (0.0-2.0); EOSINOPHIL % 0.5 % (0.0-4.0); HEMO FLAGS DIFF FINAL; LYMPH % 26.2 % (9.0-44.0); LYMPHOCYTE # 2.1 TH/MM3 (1.0-4.8); MEAN CELL VOLUME 85.9 FL (80.0-100.0); MEAN CORPUSCULAR HGB CONC 33.8 % (32.0-36.0); MONO % 9.5 % (0.0-8.0); NEUT % 63.5 % (16.0-70.0); PLATELET COUNT 218 TH/MM3 (150-450); RED BLOOD COUNT 4.43 MIL/MM3 (4.50-5.90); RED CELL DISTRIBUTION WIDTH 14.7 % (11.6-17.2); WHITE BLOOD COUNT 8.2 TH/MM3 (4.0-11.0)
[2017-01-27 23:46] LABS: PROTHROMBIN TIME - PATIENT 11.3 SEC (9.8-11.6)
--- NOTE | 2017-01-27 23:48 | RADRPT ---
EXAM DATE/TIME: 01/27/2017 22:58 [facility] COMPARISON: CHEST SINGLE AP, October 27, 2016, 1:56. INDICATIONS : Chest pain since this afternoon. MEDICAL HISTORY : None. SURGICAL HISTORY : None. ENCOUNTER: Initial ACUITY: 1 day PAIN SCORE: 6/10 LOCATION: Bilateral chest FINDINGS: A single view of the chest demonstrates the lungs to be symmetrically, but under aerated without evid ence of mass, infiltrate or effusion. The cardiomediastinal contours are unremarkable. Osseous stru ctures are intact. CONCLUSION: Hypoinflation with no acute cardiopulmonary process. Connor Larson MD on January 27, 2017 at 23:46 Board Certified Radiologist. This report was verified electronically.
--- NOTE | 2017-01-28 00:07 | PD ---
HPI Chief Complaint: Chest Pain Time Seen by Provider: 22:56 Travel History International Travel<30 days: No Contact w/Intl Traveler<30days: No Traveled to known affect area: No History of Present Illness HPI Patient is a 46-year-old male presents emergency department for evaluation of aggressive behavior. Patient was seen here under Alex act for aggressive behavior earlier today was medically cleared and seen by psychiatry and cleared to go to the [facility], apparently on the trip to the [facility] the patient became agitated. After arrival here in the emergency department he stated he was having chest pain and started screaming. He gives only one word answers of the time, clearly he has an intellectual disability which limits his history further. He states she's never had any heart problems. PFSH Past Medical History Diminished Hearing: No Neurologic: Yes (MENTAL RETARDATION) Psychiatric: Yes Immunizations Current: No Tetanus Vaccination: Unknown Influenza Vaccination: No Social History Alcohol Use: No Tobacco Use: No Substance Use: No Allergies-Medications (Allergen,Severity, Reaction): Coded Allergies: No Known Allergies (Unverified , 01/25/17) Reported Meds & Prescriptions Reported Meds & Active Scripts Active Reported Preparation H (Dhruv Patterson) 1 Each Med..pad Unknown Dose RECTAL BID Fiber Laxative (Calcium Polycarbophil) 625 Mg Tab 1,250 Mg PO BID PRN Zyprexa (Olanzapine) 10 Mg Tab 10 Mg PO HS Depakote ER (Divalproex Sodium) 500 Mg Amado 1,000 Mg PO HS Depakote ER (Divalproex Sodium) 500 Mg Amado 500 Mg PO DAILY Ferrex 150 (Polysaccharide Iron Complex) 150 Mg Cap 150 Mg PO HS Amlodipine (Amlodipine Besylate) 2.5 Mg Tab 2.5 Mg PO HS Venlafaxine ER 24 HR (Venlafaxine HCl) 150 Mg Cap 150 Mg PO DAILY Citalopram (Citalopram Hydrobromide) 20 Mg Tab 30 Mg PO DAILY Atorvastatin (Atorvastatin Calcium) 10 Mg Tab 10 Mg PO HS Clonazepam 1 Mg Tab 1 Mg PO TID Metoprolol Tartrate 25 Mg Tab 25 Mg PO DAILY Latuda (Lurasidone) 40 Mg Tab 80 Mg PO DAILY Synthroid (Levothyroxine Sodium) 112 Mcg Tab 112 Mcg PO DAILY Triamterene-Hydrochlorothiazide 37.5-25 Mg Tab 1 Tab PO DAILY Amlodipine (Amlodipine Besylate) 5 Mg Tab 5 Mg PO DAILY Omeprazole 40 Mg Cap 40 Mg PO DAILY Review of Systems Except as stated in HPI: all other systems reviewed are Neg Physical Exam Narrative GENERAL: Well-developed well-nourished no apparent distress. SKIN: Focused skin assessment warm/dry. HEAD: No peters signs no raccoons eyes, patient does have an abrasion to his forehead.. Normocephalic. EYES: Pupils equal and round. No scleral icterus. No injection or drainage. ENT: No nasal bleeding or discharge. Mucous membranes pink and moist. NECK: Trachea midline. No JVD. CARDIOVASCULAR: Regular rate and rhythm. No murmur appreciated. 2+ bilateral equal pulses in all 4 extremity's. RESPIRATORY: No accessory muscle use. Clear to auscultation. Breath sounds equal bilaterally. GASTROINTESTINAL: Abdomen soft, non-tender, nondistended. Hepatic and splenic margins not palpable. MUSCULOSKELETAL: No obvious deformities. No clubbing. No cyanosis. No edema. NEUROLOGICAL: Awake and alert. No obvious cranial nerve deficits. Motor grossly within normal limits. Normal speech. PSYCHIATRIC: Appropriate mood and affect; insight and judgment normal. Data Data Last Documented VS Vital Signs Date Time Temp Pulse Resp B/P Pulse Ox O2 Delivery O2 Flow Rate FiO2 01/27/17 23:03 96 Room Air 01/27/17 22:56 98.1 97 18 156/90 Orders Electrocardiogram (01/27/17 22:59) Ckmb (Isoenzyme) Profile (01/27/17 22:59) Complete Blood Count With Diff (01/27/17 22:59) Comprehensive Metabolic Panel (01/27/17 22:59) Magnesium (Mg) (01/27/17 22:59) Prothrombin Time / Inr (Pt) (01/27/17 22:59) Act Partial Throm Time (Ptt) (01/27/17 22:59) Troponin I (01/27/17 22:59) Chest, Single Ap (01/27/17 22:59) Ecg Monitoring (01/27/17 22:59) Iv Access Insert/Monitor (01/27/17 22:59) Oximetry (01/27/17 22:59) Oxygen Administration (01/27/17 22:59) Sodium Chloride 0.9% Flush (Ns Flush) (01/27/17 23:00) Psych Screen (01/27/17 23:33) CKMB (01/27/17 23:18) CKMB% (01/27/17 23:18) Troponin I (01/28/17 01:46) Electrocardiogram (01/28/17 ) Labs Laboratory Tests Test 01/27/17 01/28/17 23:18 01:47 Prothrombin Time 11.3 SEC Prothromb Time International 1.0 RATIO Ratio Activated Partial 26.0 SEC Thromboplast Time White Blood Count 8.2 TH/MM3 Red Blood Count 4.43 MIL/MM3 Hemoglobin 12.9 GM/DL Hematocrit 38.0 % Mean Corpuscular Volume 85.9 FL Mean Corpuscular Hemoglobin 29.0 PG Mean Corpuscular Hemoglobin 33.8 % Concent Red Cell Distribution Width 14.7 % Platelet Count 218 TH/MM3 Mean Platelet Volume 8.9 FL Neutrophils (%) (Auto) 63.5 % Lymphocytes (%) (Auto) 26.2 % Monocytes (%) (Auto) 9.5 % Eosinophils (%) (Auto) 0.5 % Basophils (%) (Auto) 0.3 % Neutrophils # (Auto) 5.2 TH/MM3 Lymphocytes # (Auto) 2.1 TH/MM3 Monocytes # (Auto) 0.8 TH/MM3 Eosinophils # (Auto) 0.0 TH/MM3 Basophils # (Auto) 0.0 TH/MM3 CBC Comment DIFF FINAL Differential Comment Sodium Level 142 MEQ/L Potassium Level 3.5 MEQ/L Chloride Level 104 MEQ/L Carbon Dioxide Level 29.2 MEQ/L Anion Gap 9 MEQ/L Blood Urea Nitrogen 7 MG/DL Creatinine 0.86 MG/DL Estimat Glomerular Filtration 97 ML/MIN Rate Random Glucose 126 MG/DL Calcium Level 9.1 MG/DL Magnesium Level 2.1 MG/DL Total Bilirubin 0.3 MG/DL Aspartate Amino Transf 17 U/L (AST/SGOT) Alanine Aminotransferase 21 U/L (ALT/SGPT) Alkaline Phosphatase 61 U/L Total Creatine Kinase 450 U/L Creatine Kinase MB 0.6 NG/ML Creatine Kinase MB % 0.1 % Troponin I LESS THAN 0.02 LESS THAN 0.02 NG/ML NG/ML Total Protein 7.0 GM/DL Albumin 3.5 GM/DL MDM Medical Decision Making Medical Screen Exam Complete: Yes Emergency Medical Condition: Yes Interpretation(s) EKG shows sinus rhythm with borderline right axis deviation, normal R-wave progression. No concerning ST segment changes. Intervals within normal limits. The borderline EKG. Differential Diagnosis ACS seems unlikely, AMI seems unlikely, intellectual disability, poor social circumstance, aggressive behavior. Narrative Course Clearly not able to make his own decisions patient was placed under Alex act for aggressive behavior and being gravely disabled. Medically cleared after 2 sets of troponins and EKG. Seems very low risk for ACS. Medically stable for psychiatric evaluation and disposition. Unfortunately there is no case management here to aid his disposition at this time. Diagnosis Primary Impression: Cognitive disorder Additional Impressions: Intellectual disability Medical clearance for psychiatric admission Chest pain Condition: Stable Tyler Huizar MD Jan 28, 2017 00:07
[2017-01-28 00:08] LABS: ALT (GPT) 21 U/L (12-78); ANION GAP 9 MEQ/L (5-15); AST (GOT) 17 U/L (15-37); BICARBONATE 29.2 MEQ/L (21.0-32.0); BLOOD UREA NITROGEN 7 MG/DL (7-18); CHLORIDE 104 MEQ/L (98-107); GLOMERULAR FILTRATION RATE 97 ML/MIN (>89); MAGNESIUM 2.1 MG/DL (1.5-2.5); POTASSIUM 3.5 MEQ/L (3.5-5.1); SODIUM (NA) 142 MEQ/L (136-145)
[2017-01-28 00:12] LABS: ALKALINE PHOSPHATASE 61 U/L (45-117); CREATINE KINASE 450 U/L (39-308); TOTAL BILIRUBIN ADULT 0.3 MG/DL (0.2-1.0)
[2017-01-28 00:24] LABS: CKMB 0.6 NG/ML (0.5-3.6)
[2017-01-28 05:40] VITALS: BP 126/75; PULSE 77; RESP 18; O2SAT 96
[2017-01-28 08:59] VITALS: BP 132/68; PULSE 72; RESP 20
[2017-01-28] MEDS ORDERED: OLANZapine IM 10 MG VIAL IM STA (12:01)
[2017-01-28] MEDS ORDERED: LORazepam 2 MG/ML VIAL IM STA (12:01)
--- NOTE | 2017-01-28 12:13 | PD.PSY.CON ---
Provisional Diagnosis Admission Date Singer I. Intellectual disability F 31 History of Present Illness Service Psychiatry Consult Requested By EDMD Reason for Consult Abi christianson Primary Care Physician No Primary Care Physician HPI Patient is a 46 white male well known to us from prior visits to the ED P patient is significantly intellectually compromised. He lives in a [facility]. Has been there for a number of years. It appears at times he does not wish to be there and does act out and attempts to leave there. He has been seen screened in our ED by the mental health services. Medication times to help recommendations to return to his [facility]. Patient just spent a significant period of time in our ED and J pod. Was released on 01/27. Did have an anger outburst of being transported back to his [facility] and return here and Abi acted hereby Dr. Scott daily in our ED dated January 28 at 01 100 a.m. that also was reviewed that document showing dorsal disability aggressive behavior inability to care for self. Present time patient laying quietly in this consult on C pod. Is calm pleasant with me his mental retardation cognitive disabilities quite obvious of this brief concrete childlike responses. He states he does not want to go back to the [facility] because he said limits on him, he does not like they have "no" said to him. In any event patient will not benefit or doesn't meet criteria for acute inpatient psychiatric hospitalizations all behavioral needs to be addressed through the [facility]. Her mental health staff. However to help with the transportation I will order Zyprexa 10 mg IM and Ativan 2 mg IM to be given prior to his transport back there Review of Systems ROS Limitations: Altered Mental Status Past Family Social History Coded Allergies: No Known Allergies (Unverified , 01/25/17) Past Medical History Patient medically cleared ED Reported Medications Dhruv Patterson (Preparation H)1 Each Med..padUnknown Dose RECTAL BID 12/15/16 Calcium Polycarbophil (Fiber Laxative)625 Mg Tab1,250 Mg PO BID PRN ( CONSTIPATION) Ref 0 12/15/16 Olanzapine (Zyprexa)10 Mg Tab10 Mg PO HS #30 TAB Ref 0 12/15/16 Divalproex ER (Depakote ER)500 Mg Taber1,000 Mg PO HS #60 TAB Ref 0 10/27/16 Divalproex ER (Depakote ER)500 Mg [id number] Mg PO DAILY #30 TAB Ref 0 10/27/16 Polysaccharide Iron Complex (Ferrex 150)150 Mg [id number] Mg PO HS 10/27/16 Amlodipine 2.5 Mg Tab2.5 Mg PO HS #30 TAB Ref 0 10/27/16 Venlafaxine ER 24 HR 150 Mg [id number] Mg PO DAILY #30 CAP Ref 0 10/27/16 Citalopram 20 Mg Tab30 Mg PO DAILY #30 TAB Ref 0 10/27/16 Atorvastatin 10 Mg Tab10 Mg PO HS #30 TAB Ref 0 10/27/16 Clonazepam 1 Mg Tab1 Mg PO TID #90 TAB Ref 0 10/27/16 Metoprolol Tartrate 25 Mg Tab25 Mg PO DAILY #30 TAB Ref 0 10/27/16 Lurasidone (Latuda)40 Mg Tab80 Mg PO DAILY #30 TAB Ref 0 10/27/16 Levothyroxine (Synthroid)112 Mcg Flj877 Mcg PO DAILY #30 TAB Ref 0 10/27/16 Triamterene-Hydrochlorothiazide 37.5-25 Mg Tab1 Tab PO DAILY #30 TAB Ref 0 10/27/16 Amlodipine 5 Mg Tab5 Mg PO DAILY #30 TAB Ref 0 10/27/16 Omeprazole 40 Mg Cap40 Mg PO DAILY #30 CAP Ref 0 10/27/16 Current Medications Medications (Trade) Dose Ordered Sig/Donny Route Start Time Stop Time Status Last Admin (NS Flush) 2 ml UNSCH PRN IVF 01/27/17 23:00 Family History Unknown at this time Social History Patient is living [facility] has never lived independently Patient's Strengths (min. 2) Patient verbal has supportive Physical Exam Patient screened in ED medically cleared Vital Signs Vital Signs Date Time Temp Pulse Resp B/P Pulse Ox O2 Delivery O2 Flow Rate FiO2 01/28/17 08:59 72 20 132/68 01/28/17 05:40 96 Room Air 01/27/17 22:56 98.1 Mental Status Examination Alert calm heavyset white male guarded in his responses quite childlike his responses responses notable for reflecting his cognitive deficits Appearance Somewhat disheveled Speech: Hesitant, Other (childlike) Orientation: Person Memory: Impaired (describe) (centimeters cognitive impairment) Thought Process: Loose Association Thought Content: Other (disorganized) Language Poor Fund of Knowledge Or Hallucination Type: None Attention and Concentration: Other (poor) Suicidal Ideation: No Previous Suicide Attempts: No Homicidal Ideation: No Previous Homicide Attempts: No Insight: Poor Judgment: Poor Affect: Other (slight increase range intensity) Mood: Irritable Motor Activity: Normal gait Assessment & Plan Problem List: (1) Intellectual disability ICD Code: F79 Assessment & Plan Estimated LOS: days patient does not meet Alex criteria will lift Alex act this is a learned behavior related to his mental capacity, patient was given medications as mentioned above and patient may be returned to the group up to continue with his outpatient schedule medications and medical/mental health services Discharge Planning See above Request HC Surrog/Guard Advoc?: No Jacques Quiñones MD Jan 28, 2017 12:13
[2017-01-28 14:32] VITALS: BP 146/72; PULSE 72; RESP 20
--- NOTE | 2017-01-28 15:48 | EKG ---
Date Performed: 01/28/2017 Time Performed: 02:05:02 PTAGE: 46 years EKG: Sinus rhythm PROBABLE INFERIOR MYOCARDIAL INFARCTION ABNORMAL ECG PREVIOUS TRACING : 01/28/2017 00.48 Compared to prior tracing no significant change DOCTOR: Shabbir Marin Interpretating Date/Time 01/28/2017 15:47:31
--- NOTE | 2017-01-28 16:08 | EKG ---
Date Performed: 01/27/2017 Time Performed: 23:07:42 PTAGE: 46 years EKG: Sinus rhythm BORDERLINE RIGHT AXIS DEVIATION BORDERLINE ECG INTERPRETATION BASED ON A DEFAULT AGE OF 42 YEARS BAS CINTIA ARTIFACT AFFECTS INTERPRETION Compared to the PREVIOUS TRACING from 12/16/16, no significant change DOCTOR: Shabbir Marin Interpretating Date/Time 01/28/2017 16:06:26
== END 2017-01-28 19:40 | disposition home or self-care (01) ==
LOC: NEPC 22:39
DX: R07.9 Chest pain, unspecified (principal); R94.31 Abnormal electrocardiogram [ECG] [EKG]; F79 Unspecified intellectual disabilities; Z79.899 Other long term (current) drug therapy
CPT/HCPCS: 71010; 80053; 82550; 82552; 83735; 84484; 85025; 85610; 85730; 93005